=== PATIENT | male | born 1980 | race Two or more races ===

== ENCOUNTER 2024-09-24 10:00 | Emergency (ER) | payer SELFPAY ==
[2024-09-24 10:21] VITALS: BP 137/86; PULSE 70; RESP 20; TEMP 98.5; BMI 29.9
[2024-09-24] MEDS ORDERED: FLUORESCEIN NA 1 EA STRIP ONE (11:18)
[2024-09-24] MEDS ORDERED: TETRACAINE 0.5% OPHTH SOLN 2 ML BOTTLE ONE (11:19)
[2024-09-24] MEDS: TETRACAINE 0.5% OPHTH SOLN 2 ML BOTTLE OD ONE (11:31)
[2024-09-24] MEDS: FLUORESCEIN NA 1 EA STRIP OD ONE (11:40)
== END 2024-09-24 11:55 | disposition home or self-care (01) ==
LOC: JERFT 10:00 → JER 10:00 → JERFT 11:55
DX: H10.023 Other mucopurulent conjunctivitis, bilateral (principal); J30.2 Other seasonal allergic rhinitis; R09.81 Nasal congestion; J34.3 Hypertrophy of nasal turbinates
CPT/HCPCS: 99283-25